=== PATIENT | female | born 1950 | race Caucasian/White ===

== ENCOUNTER 2025-08-05 20:51 | Emergency (ER) | payer MEDICARE, MEDICAID, SELFPAY ==
[2025-08-05 20:54] VITALS: BMI 41.0
[2025-08-05 21:32] VITALS: BP 142/92; PULSE 95; RESP 18; TEMP 37.1; O2SAT 95
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
== END 2025-08-05 22:19 | disposition home or self-care (01) ==
LOC: SERX 22:34
PROVIDERS: Emergency Provider Emergency Medicine; PCP Physician Assistant
DX: Z76.0 Encounter for issue of repeat prescription (principal); M54.50 Low back pain, unspecified; M25.569 Pain in unspecified knee; M79.673 Pain in unspecified foot; G89.29 Other chronic pain
CPT/HCPCS: 99281; A9270